=== PATIENT | female | born 1995 | race Caucasian/White ===

== ENCOUNTER 2017-06-11 15:43 | Emergency (ER) | payer MEDICAID ==
[~2017-06-11] VITALS: Ht 5451.6 cm; Wt 64.0 kg
[~2017-06-11 15:43] MED LIST: AMOX875T2 PO
[2017-06-11 15:46] VITALS: BP 133/77
[2017-06-11] MEDS ORDERED: CLIN300C53 PO (15:59)
[2017-06-11] MEDS ORDERED: HYDR-565 PO (15:59)
[2017-06-11] MEDS ORDERED: HYDROcodone/acetaminophen 10/325mg tab PO ONE (16:10)
[2017-06-12] MEDS ORDERED: PENI500T2 PO (16:09)
[2017-06-12] MEDS ORDERED: HYDR-565 PO (16:09)
== END 2017-06-11 16:35 | disposition home or self-care (01) ==
LOC: ER 15:44
DX: J03.90 Acute tonsillitis, unspecified (principal); K08.89 Other specified disorders of teeth and supporting structures; F17.200 Nicotine dependence, unspecified, uncomplicated; F12.10 Cannabis abuse, uncomplicated; F15.10 Other stimulant abuse, uncomplicated; Z79.899 Other long term (current) drug therapy
CPT/HCPCS: 99283

== ENCOUNTER 2017-06-12 15:44 | Emergency (ER) | payer MEDICAID ==
[~2017-06-12] VITALS: Ht 165.1 cm; Wt 63.6 kg
[~2017-06-12 15:44] MED LIST changes: +CLIN300C53 PO; +HYDR-565 PO
[2017-06-12 15:57] VITALS: BP 116/71
[2017-06-12] MEDS ORDERED: PENI500T2 PO (16:09)
[2017-06-12] MEDS ORDERED: HYDR-565 PO (16:09)
== END 2017-06-12 16:18 | disposition home or self-care (01) ==
LOC: ER 15:44
DX: A49.1 Streptococcal infection, unspecified site (principal); F12.10 Cannabis abuse, uncomplicated; F15.10 Other stimulant abuse, uncomplicated; Z79.899 Other long term (current) drug therapy
CPT/HCPCS: 99283

== ENCOUNTER 2018-05-23 22:26 | Emergency (ER) | payer MEDICAID ==
[~2018-05-23] VITALS: Ht 157.5 cm; Wt 56.6 kg
[~2018-05-23 22:26] MED LIST changes: +CEPH500C5 PO; -CLIN300C53 PO; -HYDR-565 PO
[2018-05-23 22:33] VITALS: BP 116/80
[2018-05-23 23:11] LABS: URINE HCG NEGATIVE (NEG)
[2018-05-23 23:12] LABS: CLARITY,URINE CLOUDY (Clear); COLOR,URINE YELLOW (Yellow); GLUCOSE, URINE NEGATIVE (Neg); KETONES,URINE NEGATIVE (Neg); LEUKOCYTE ESTERASE ,URINE SMALL (Neg); NITRITES, URINE POSITIVE (Neg); OCCULT BLOOD,URINE SMALL (Neg); PROTEIN,URINE TRACE mg/dl (Neg)
[2018-05-23 23:14] LABS: UA COLLECTION TYPE CLN CATCH MIDSTREAM
[2018-05-23 23:20] LABS: BACTERIA,URINE 4+ /HPF (Neg); RBC,URINE NONE SEEN /HPF (0-2)
[2018-05-23 23:21] LABS: SQUAMOUS EPITHELIAL CELL,UR MANY /LPF (FEW)
[2018-05-23] MEDS ORDERED: azithromycin 250mg tablet PO ONE (23:35)
[2018-05-23] MEDS ORDERED: CefTRIAXone 1000mg IM Kit (w/lidocaine diluent) IM ONE (23:35)
[2018-05-23] MEDS ORDERED: penicillin G benzathine 1.2 million unit/2ml syringe IM ONE (23:35)
[2018-05-25 11:14] LABS: RPR Reactive (Non Reactive)
== END 2018-05-24 00:26 | disposition home or self-care (01) ==
LOC: ER 22:26
DX: Z11.3 Encounter for screening for infections with a predominantly sexual mode of transmission (principal); N93.8 Other specified abnormal uterine and vaginal bleeding; F12.90 Cannabis use, unspecified, uncomplicated; F15.90 Other stimulant use, unspecified, uncomplicated
CPT/HCPCS: 36415; 81001; 81025; 86592; 96372; 99283; J0561; J0696

== ENCOUNTER 2018-06-22 06:44 | Emergency (ER) | payer MEDICAID ==
[~2018-06-22] VITALS: Ht 160 cm; Wt 65.9 kg
[2018-06-22 06:52] VITALS: BP 144/88
[2018-06-22] MEDS ORDERED: HYDROcodone/acetaminophen 5mg/325mg tablet PO ONE (07:15)
[2018-06-22] MEDS ORDERED: naproxen 500mg tablet PO ONE (07:20)
[2018-06-22] MEDS ORDERED: HYDR-3965 PO (07:23)
[2018-06-22] MEDS ORDERED: NAPR-56 PO (07:23)
== END 2018-06-22 07:52 | disposition home or self-care (01) ==
LOC: ER 06:45
DX: S12.490A Other displaced fracture of fifth cervical vertebra, initial encounter for closed fracture (principal); F12.90 Cannabis use, unspecified, uncomplicated; F15.90 Other stimulant use, unspecified, uncomplicated; Z79.2 Long term (current) use of antibiotics; Z79.899 Other long term (current) drug therapy; V89.2XXA Person injured in unspecified motor-vehicle accident, traffic, initial encounter; Y93.89 Activity, other specified; Y92.89 Other specified places as the place of occurrence of the external cause; Y99.8 Other external cause status
CPT/HCPCS: 99284

== ENCOUNTER 2019-01-10 10:16 | Emergency (ER) | payer MEDICAID ==
[~2019-01-10] VITALS: Ht 160 cm; Wt 63.8 kg
[~2019-01-10 10:16] MED LIST changes: -CEPH500C5 PO
[2019-01-10] MEDS ORDERED: AMOX-580 PO (11:52)
[2019-01-10] MEDS ORDERED: acetaminophen 325mg tablet PO ONE (11:55)
[2019-01-10 12:08] VITALS: BP 118/78
== END 2019-01-10 12:14 | disposition home or self-care (01) ==
LOC: ER 10:17
DX: J02.0 Streptococcal pharyngitis (principal); F12.90 Cannabis use, unspecified, uncomplicated; F15.90 Other stimulant use, unspecified, uncomplicated
CPT/HCPCS: 99283

== ENCOUNTER 2019-09-05 17:14 | Emergency (ER) | payer MEDICAID ==
[~2019-09-05] VITALS: Ht 157.5 cm; Wt 90.0 kg
[2019-09-05 17:17] VITALS: BP 136/72
--- NOTE | 2019-09-05 17:53 | NUR ---
pt is 24 yo female would like to know how her is going, LMP approx 3 months ago "but I am not sure", had test at [facility] 08/07, missed ultrasound appt 08/31, started [facility] for meth use but quit, last meth use was a couple days ago, pt is aware she needs to stop using drugs, waiting to be evaluated by provider, no vaginal discharge, no bleeding
[2019-09-05 18:21] LABS: CLARITY,URINE CLOUDY (Clear); COLOR,URINE YELLOW (Yellow); GLUCOSE, URINE NEGATIVE (Neg); KETONES,URINE NEGATIVE (Neg); LEUKOCYTE ESTERASE ,URINE SMALL (Neg); NITRITES, URINE POSITIVE (Neg); OCCULT BLOOD,URINE NEGATIVE (Neg); PROTEIN,URINE NEGATIVE (Neg); UROBILINOGEN,URINE 0.2 E.U/dL (0.2-1.0)
[2019-09-05 18:27] LABS: UA COLLECTION TYPE CLN CATCH MIDSTREAM
[2019-09-05 18:29] LABS: RBC,URINE 0-2 /HPF (0-2); SQUAMOUS EPITHELIAL CELL,UR MANY /LPF (FEW)
[2019-09-05 18:31] LABS: MUCUS STRANDS FEW /LPF (Neg)
[2019-09-05 18:37] LABS: BACTERIA,URINE 4+ /HPF (Neg)
--- NOTE | 2019-09-05 18:39 | NUR ---
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
--- NOTE | 2019-09-05 18:40 | NUR ---
Ivory RN made aware per lab, pts ua rejected d/t too much epithialial cells. Urine positive for nitrates and WBCs. Pt will need to provide a new urine sample.
[2019-09-05 18:58] LABS: URINE HCG POSITIVE (NEG)
== END 2019-09-05 21:05 | disposition home or self-care (01) ==
LOC: ER 17:14
DX: O03.9 Complete or unspecified spontaneous abortion without complication (principal); Z3A.08 8 weeks gestation of pregnancy
CPT/HCPCS: 76801; 76817; 81001; 81025; 99284

== ENCOUNTER 2020-02-05 10:25 | Emergency (ER) | payer MEDICAID ==
[~2020-02-05] VITALS: Ht 157.5 cm; Wt 72.0 kg
[2020-02-05 10:31] VITALS: BP 113/70
[2020-02-05 11:48] LABS: URINE HCG POSITIVE (NEG)
[2020-02-05 11:49] LABS: CLARITY,URINE SLIGHTLY CLOUDY (Clear); COLOR,URINE YELLOW (Yellow); GLUCOSE, URINE NEGATIVE (Neg); KETONES,URINE NEGATIVE (Neg); LEUKOCYTE ESTERASE ,URINE NEGATIVE (Neg); NITRITES, URINE NEGATIVE (Neg); OCCULT BLOOD,URINE NEGATIVE (Neg); PROTEIN,URINE NEGATIVE (Neg); UROBILINOGEN,URINE 0.2 E.U/dL (0.2-1.0)
[2020-02-05 11:55] LABS: UA COLLECTION TYPE CLN CATCH MIDSTREAM
[2020-02-05 11:58] LABS: BACTERIA,URINE 4+ /HPF (Neg); SQUAMOUS EPITHELIAL CELL,UR MODERATE /LPF (FEW)
[2020-02-05 11:59] LABS: BASOPHILS # (AUTO) 0.1 X10'3 (0-0.2); BASOPHILS % (AUTO) 0.7 % (0-1); EOSINOPHILS % (AUTO) 0.6 % (0-6); HEMATOCRIT 36.9 % (35.0-45.0); HEMOGLOBIN 12.6 g/dl (12.0-16.0); LYMPHOCYTES # (AUTO) 3.3 X10'3 (1.1-4.8); MEAN CORPUSCULAR HEMOGLOBIN 29.5 PG (27.0-31.0); MEAN CORPUSCULAR HGB CONC 34.2 g/dL (33.0-36.5); MEAN CORPUSCULAR VOLUME 86.4 FL (78-98); MEAN PLATELET VOLUME 8.7 FL (7.4-10.4); MONOCYTES # (AUTO) 0.6 X10'3 (0-0.9); MONOCYTES % (AUTO) 6.4 % (2-12); NEUTROPHILS # (AUTO) 4.7 X10'3 (1.8-7.7); NEUTROPHILS % (AUTO) 54.3 % (42-75); PLATELET COUNT 214 X10'3 (140-440); RED BLOOD COUNT 4.26 X10'6 (4.20-5.60); RED CELL DISTRIBUTION WIDTH 12.9 % (11.5-14.5); WHITE BLOOD COUNT 8.6 X10'3 (4.5-11.0)
[2020-02-05 12:00] LABS: MUCUS STRANDS FEW /LPF (Neg); RBC,URINE 0-2 /HPF (0-2); WBC,URINE 0-4 /HPF (0-4)
[2020-02-05 12:20] LABS: ALANINE AMINOTRANSFERASE 17 U/L (12-78); ALBUMIN 3.2 G/DL (3.4-5.0); ALBUMIN/GLOBULIN RATIO 0.8 (1.1-1.5); ALKALINE PHOSPHATASE 63 IU/L (46-116); ANION GAP 8 (8-16); ASPARTATE AMINO TRANSFERASE 17 U/L (10-37); BILIRUBIN,TOTAL 0.3 MG/DL (0.1-1.0); BLOOD UREA NITROGEN 19 MG/DL (7-18); BUN/CREATININE RATIO 41.3 (6.6-38.0); CALCIUM 8.3 MG/DL (8.5-10.1); CHLORIDE 104 MMOL/L (99-107); CREATININE 0.46 MG/DL (0.40-0.90); GLUCOSE 88 MG/DL (70-104); LIPASE 75 U/L (73-393); POTASSIUM 3.9 MMOL/L (3.5-5.1); SODIUM 137 MMOL/L (135-145); TOTAL CARBON DIOXIDE 24.6 MMOL/L (24-32); TOTAL PROTEIN 7.2 G/DL (6.4-8.2); eGFR > 90 ML/MIN
[2020-02-05] MEDS ORDERED: ONDA4TAB6 PO (12:25)
== END 2020-02-05 12:41 | disposition home or self-care (01) ==
LOC: ER 10:25
DX: O26.899 Other specified pregnancy related conditions, unspecified trimester (principal); R11.0 Nausea; R10.11 Right upper quadrant pain; F12.90 Cannabis use, unspecified, uncomplicated; F15.90 Other stimulant use, unspecified, uncomplicated; Z3A.00 Weeks of gestation of pregnancy not specified; Z72.89 Other problems related to lifestyle; Z79.2 Long term (current) use of antibiotics; Z79.899 Other long term (current) drug therapy
CPT/HCPCS: 36415; 80053; 81001; 81025; 83690; 85025; 87077; 87088; 87186; 99283

== ENCOUNTER 2020-08-06 20:57 | Emergency (ER) | payer MEDICAID ==
[~2020-08-06] VITALS: Ht 162.6 cm; Wt 94.0 kg
[~2020-08-06 20:57] MED LIST changes: +ONDA4TAB6 PO
[2020-08-06 23:47] VITALS: BP 129/85
== END 2020-08-06 23:49 | disposition home or self-care (01) ==
LOC: ER 20:58
DX: Z02.89 Encounter for other administrative examinations (principal); F12.90 Cannabis use, unspecified, uncomplicated; F15.90 Other stimulant use, unspecified, uncomplicated; Z72.89 Other problems related to lifestyle; Z79.2 Long term (current) use of antibiotics; Z79.899 Other long term (current) drug therapy
CPT/HCPCS: 99281

== ENCOUNTER 2022-06-13 03:54 | Inpatient (IN) | payer MEDICAID ==
[~2022-06-13] VITALS: Ht 160 cm; Wt 111.4 kg
[2022-06-13] MEDS ORDERED: morphine 2 MG/ML inj. syringe IV PRN (05:05)
[2022-06-13] MEDS ORDERED: normal saline 1000ML IV soln IVB ONE (05:05)
[2022-06-13 06:34] LABS: BASOPHILS # (AUTO) 0.1 X10'3 (0-0.2); BASOPHILS % (AUTO) 0.3 % (0-1); EOSINOPHILS % (AUTO) 0 % (0-6); HEMATOCRIT 33.5 % (35.0-45.0); HEMOGLOBIN 11.2 g/dl (12.0-16.0); LYMPHOCYTES # (AUTO) 2.4 X10'3 (1.1-4.8); LYMPHOCYTES % (AUTO) 15.5 % (21-51); MEAN CORPUSCULAR HEMOGLOBIN 28.5 PG (27.0-31.0); MEAN CORPUSCULAR HGB CONC 33.3 g/dL (33.0-36.5); MEAN CORPUSCULAR VOLUME 85.7 FL (78-98); MEAN PLATELET VOLUME 10.4 FL (7.4-10.4); MONOCYTES # (AUTO) 0.8 X10'3 (0-0.9); MONOCYTES % (AUTO) 4.9 % (2-12); NEUTROPHILS # (AUTO) 12.5 X10'3 (1.8-7.7); NEUTROPHILS % (AUTO) 79.3 % (42-75); PLATELET COUNT 251 X10'3 (140-440); RED BLOOD COUNT 3.91 X10'6 (4.20-5.60); RED CELL DISTRIBUTION WIDTH 13.8 % (11.5-14.5); WHITE BLOOD COUNT 15.7 X10'3 (4.5-11.0)
[2022-06-13 06:45] LABS: ALANINE AMINOTRANSFERASE 40 U/L (12-78); ALBUMIN 3.4 G/DL (3.4-5.0); ALBUMIN/GLOBULIN RATIO 0.9 (1.1-1.5); ALKALINE PHOSPHATASE 93 IU/L (46-116); ANION GAP 9 (8-16); ASPARTATE AMINO TRANSFERASE 42 U/L (10-37); BILIRUBIN,TOTAL 0.7 MG/DL (0.1-1.0); BLOOD UREA NITROGEN 17 MG/DL (7-18); BUN/CREATININE RATIO 16.2 (10.0-20.0); CALCIUM 8.7 MG/DL (8.5-10.1); CHLORIDE 104 MMOL/L (99-107); CREATININE 1.05 MG/DL (0.40-0.90); GLUCOSE 115 MG/DL (70-104); LIPASE 59 U/L (73-393); MAGNESIUM 1.8 MG/DL (1.5-2.4); POTASSIUM 4.3 MMOL/L (3.5-5.1); SODIUM 136 MMOL/L (135-145); TOTAL CARBON DIOXIDE 23.2 MMOL/L (24-32); TOTAL PROTEIN 7.1 G/DL (6.4-8.2); eGFR 63 ML/MIN
[2022-06-13 06:52] LABS: ETHANOL < 0.010 GM/DL (0.0-0.010)
[2022-06-13] MEDS ORDERED: normal saline 1000ml 1,000 ML IV ONE (08:15)
[2022-06-13 09:26] LABS: APTT 24 SECONDS (22-32)
[2022-06-13 09:36] LABS: HCG SERUM QL NEGATIVE
[2022-06-13 09:56] LABS: CLARITY,URINE CLOUDY (Clear); COLOR,URINE YELLOW (Yellow); GLUCOSE, URINE NEGATIVE (Neg); KETONES,URINE >=80 mg/dl (Neg); LEUKOCYTE ESTERASE ,URINE TRACE (Neg); NITRITES, URINE POSITIVE (Neg); OCCULT BLOOD,URINE NEGATIVE (Neg); PROTEIN,URINE 30 mg/dl (Neg); UROBILINOGEN,URINE 0.2 E.U/dL (0.2-1.0)
[2022-06-13 10:02] LABS: URINE AMPHETAMINE SCREEN POSITIVE (Neg); URINE BARBITUATE SCREEN NEGATIVE (Neg); URINE BENZODIAZEPINES SCREEN NEGATIVE (Neg); URINE CANNABINOID SCREEN POSITIVE (Neg); URINE COCAINE SCREEN NEGATIVE (Neg); URINE METHADONE SCREEN NEGATIVE (Neg); URINE OPIATE SCREEN NEGATIVE (Neg); URINE PHENCYCLIDINE SCREEN NEGATIVE (Neg)
[2022-06-13 10:07] LABS: UA COLLECTION TYPE CLN CATCH MIDSTREAM
[2022-06-13 10:16] LABS: WBC,URINE 20-30 /HPF (0-4)
[2022-06-13 10:17] LABS: BACTERIA,URINE 4+ /HPF (Neg); MUCUS STRANDS FEW /LPF (Neg); RBC,URINE 0-2 /HPF (0-2); SQUAMOUS EPITHELIAL CELL,UR MANY /LPF (FEW)
[2022-06-13] MEDS ORDERED: iohexol 300mg/ml 100ml inj. ONE (10:41)
--- NOTE | 2022-06-13 10:51 | NUR ---
patient to ct.
[2022-06-13 11:05] LABS: OCCULT BLOOD STOOL POSITIVE (Neg)
[2022-06-13] MEDS ORDERED: acetaminophen 325mg tablet PO PRN ×2 (12:10)
[2022-06-13] MEDS ORDERED: metoclopramide 5 mg/ml inj IV PRN (12:10)
[2022-06-13] MEDS ORDERED: acetaminophen 650mg rectal suppository RC PRN (12:10)
[2022-06-13] MEDS ORDERED: ondansetron/PF 4mg/2ml inj IV PRN (12:10)
[2022-06-13] MEDS ORDERED: ondansetron 4mg rapidly disintigrating tab PO PRN (12:10)
[2022-06-13] MEDS ORDERED: bisacodyl 10mg suppository rectal RC PRN (12:10)
[2022-06-13] MEDS ORDERED: magnesium Cl slow-release 64mg tablet PO PRN (12:10)
[2022-06-13] MEDS ORDERED: magnesium hydroxide 30ml (MOM) UD suspension PO PRN (12:10)
[2022-06-13] MEDS ORDERED: magnesium 2GM in 50ml NS 50 ML IV PRN (12:10)
[2022-06-13] MEDS ORDERED: potassium Cl 40MEQ/1/2NS 520ml 520 ML IV PRN (12:10)
[2022-06-13] MEDS ORDERED: PEG 3350/Na sulf,bicarb,Cl/KCl oral sol 4 liter bottle PO ONE (12:10)
[2022-06-13] MEDS ORDERED: potassium Cl 20 mEq SR tablet PO PRN ×2 (12:10)
[2022-06-13] MEDS ORDERED: LORazepam 0.5 MG tablet PO PRN (12:10)
[2022-06-13] MEDS ORDERED: mag hydrox/Alum hydrox/simeth 30ml oral suspension PO PRN (12:10)
[2022-06-13] MEDS ORDERED: magnesium 4gm in 100ml NS 100 ML IV PRN (12:10)
--- NOTE | 2022-06-13 12:46 | NUR ---
Attempted to call Gi lab to coordinate scope time tomorrow and inquire when to start oral prep/golytely but no answer.paged GI instead. We will wait for a call.
[2022-06-13] MEDS ORDERED: NO HOME MEDS (13:05)
--- NOTE | 2022-06-13 14:14 | NUR ---
ALEXEI GUSTAFSON ON BREAK BUT WILL BE BACK SOON.
[2022-06-13] MEDS: normal saline 1000ml 1,000 ML IV SCH ×2 (17:38→22:10)
[2022-06-13 18:00] VITALS: BP 110/68
--- NOTE | 2022-06-13 18:52 | NUR ---
Gave report to aMrcy vera RN.
--- NOTE | 2022-06-13 18:55 | NUR ---
Patient in room [facility]. I have received report from ALEXEI GUSTAFSON and had the opportunity to ask questions and assume patient care.
[2022-06-13] MEDS: K and/or MAG REPLACEMENT MC SCH (20:00)
[2022-06-13] MEDS: docusate sod 100mg capsule PO SCH (20:30)
[2022-06-13] MEDS ORDERED: temazepam 15mg capsule PO PRN (21:00)
[2022-06-13 22:00] VITALS: BP 114/55
[2022-06-14] VITALS (8 sets, daily range): BP systolic 91–131; BP diastolic 43–89
[2022-06-14] MEDS: normal saline 1000ml 1,000 ML IV SCH ×2 (02:41→18:10)
[2022-06-14 06:09] LABS: BASOPHILS % (AUTO) 0.4 % (0-1); EOSINOPHILS # (AUTO) 0.1 X10'3 (0-0.9); EOSINOPHILS % (AUTO) 0.8 % (0-6); HEMATOCRIT 23.2 % (35.0-45.0); HEMOGLOBIN 7.8 g/dl (12.0-16.0); LYMPHOCYTES # (AUTO) 3.7 X10'3 (1.1-4.8); MEAN CORPUSCULAR HEMOGLOBIN 29.2 PG (27.0-31.0); MEAN CORPUSCULAR HGB CONC 33.8 g/dL (33.0-36.5); MEAN CORPUSCULAR VOLUME 86.6 FL (78-98); MEAN PLATELET VOLUME 9.9 FL (7.4-10.4); MONOCYTES # (AUTO) 0.6 X10'3 (0-0.9); MONOCYTES % (AUTO) 7.3 % (2-12); NEUTROPHILS # (AUTO) 3.9 X10'3 (1.8-7.7); NEUTROPHILS % (AUTO) 46.5 % (42-75); PLATELET COUNT 159 X10'3 (140-440); RED BLOOD COUNT 2.68 X10'6 (4.20-5.60); RED CELL DISTRIBUTION WIDTH 14.1 % (11.5-14.5); WHITE BLOOD COUNT 8.3 X10'3 (4.5-11.0)
--- NOTE | 2022-06-14 06:30 | NUR ---
Problems reprioritized. Patient report given, questions answered & plan of care reviewed with ALEXEI GUSTAFSON.
[2022-06-14 06:35] LABS: ALANINE AMINOTRANSFERASE 25 U/L (12-78); ALBUMIN 2.6 G/DL (3.4-5.0); ALKALINE PHOSPHATASE 69 IU/L (46-116); ANION GAP 8 (8-16); ASPARTATE AMINO TRANSFERASE 24 U/L (10-37); BILIRUBIN,TOTAL 0.3 MG/DL (0.1-1.0); BLOOD UREA NITROGEN 13 MG/DL (7-18); CALCIUM 7.8 MG/DL (8.5-10.1); CHLORIDE 109 MMOL/L (99-107); CREATININE 0.65 MG/DL (0.40-0.90); GLUCOSE 91 MG/DL (70-104); POTASSIUM 3.3 MMOL/L (3.5-5.1); SODIUM 143 MMOL/L (135-145); TOTAL CARBON DIOXIDE 26.4 MMOL/L (24-32); TOTAL PROTEIN 5.3 G/DL (6.4-8.2); eGFR > 90 ML/MIN
[2022-06-14] MEDS: docusate sod 100mg capsule PO SCH ×2 (07:00→20:00)
[2022-06-14] MEDS: K and/or MAG REPLACEMENT MC SCH ×2 (08:41→20:00)
--- NOTE | 2022-06-14 08:41 | NUR ---
cALLED PHARMACY TO PREPARE iv POTASSIUM
[2022-06-14] MEDS ORDERED: potassium Cl 40MEQ/1/2NS 520ml 520 ML IV ONE (08:45)
[2022-06-14] MEDS ORDERED: fentaNYL/PF 50MCG/1 ML 2ML syringe ONE (15:16)
[2022-06-14] MEDS ORDERED: MIDAZolam 1 MG/ML 5ML VIAL ONE (15:16)
--- NOTE | 2022-06-14 16:45 | NUR ---
PAGER ID: [phone] MESSAGE: Ashley Vitale 345a [facility] No active bleed. Some purple "bruised spots". Pt. asking to stay until AM and eat. Can she have a diet? Heike [id number]
--- NOTE | 2022-06-14 18:32 | NUR ---
Gave report to Marta GUSTAFSON.
[2022-06-15 06:00] VITALS: BP 97/56
--- NOTE | 2022-06-15 06:47 | NUR ---
Patient in room [facility]. I have received report from JANAY Lozano and had the opportunity to ask questions and assume patient care.
[2022-06-15] MEDS: normal saline 1000ml 1,000 ML IV SCH (06:56)
[2022-06-15 07:31] LABS: BASOPHILS % (AUTO) 0.4 % (0-1); EOSINOPHILS # (AUTO) 0.1 X10'3 (0-0.9); EOSINOPHILS % (AUTO) 0.8 % (0-6); HEMATOCRIT 23.1 % (35.0-45.0); HEMOGLOBIN 7.7 g/dl (12.0-16.0); LYMPHOCYTES # (AUTO) 3.3 X10'3 (1.1-4.8); LYMPHOCYTES % (AUTO) 39.4 % (21-51); MEAN CORPUSCULAR HEMOGLOBIN 28.9 PG (27.0-31.0); MEAN CORPUSCULAR HGB CONC 33.2 g/dL (33.0-36.5); MEAN CORPUSCULAR VOLUME 87.1 FL (78-98); MEAN PLATELET VOLUME 9.9 FL (7.4-10.4); MONOCYTES # (AUTO) 0.5 X10'3 (0-0.9); MONOCYTES % (AUTO) 6.3 % (2-12); NEUTROPHILS # (AUTO) 4.4 X10'3 (1.8-7.7); NEUTROPHILS % (AUTO) 53.1 % (42-75); PLATELET COUNT 161 X10'3 (140-440); RED BLOOD COUNT 2.65 X10'6 (4.20-5.60); RED CELL DISTRIBUTION WIDTH 14.6 % (11.5-14.5); WHITE BLOOD COUNT 8.3 X10'3 (4.5-11.0)
[2022-06-15 07:57] LABS: ALANINE AMINOTRANSFERASE 23 U/L (12-78); ALBUMIN 2.5 G/DL (3.4-5.0); ALBUMIN/GLOBULIN RATIO 0.9 (1.1-1.5); ALKALINE PHOSPHATASE 78 IU/L (46-116); ANION GAP 8 (8-16); ASPARTATE AMINO TRANSFERASE 23 U/L (10-37); BILIRUBIN,TOTAL 0.2 MG/DL (0.1-1.0); BLOOD UREA NITROGEN 9 MG/DL (7-18); BUN/CREATININE RATIO 13.4 (10.0-20.0); CALCIUM 7.8 MG/DL (8.5-10.1); CHLORIDE 106 MMOL/L (99-107); CREATININE 0.67 MG/DL (0.40-0.90); GLUCOSE 100 MG/DL (70-104); POTASSIUM 3.4 MMOL/L (3.5-5.1); SODIUM 140 MMOL/L (135-145); TOTAL CARBON DIOXIDE 26.3 MMOL/L (24-32); TOTAL PROTEIN 5.3 G/DL (6.4-8.2); eGFR > 90 ML/MIN
[2022-06-15] MEDS: docusate sod 100mg capsule PO SCH (08:00)
[2022-06-15] MEDS: K and/or MAG REPLACEMENT MC SCH (08:09)
[2022-06-15 11:00] VITALS: BP 117/53
--- NOTE | 2022-06-15 13:03 | NUR ---
Patient stable and appropriate for discharge. All instructions given to patient. IV removed, canula intact. All belongings sent with patient. Patient walked to lobby and taken home in private vehicle.
== END 2022-06-15 13:00 | disposition home or self-care (01) | DRG 254 ==
LOC: ER 03:55 → ED HOLD 12:21 → SUR 3N 16:40
PROVIDERS: ADMIT Family Medicine; ATTEND Family Medicine
PROC: BW211ZZ Computerized Tomography (CT Scan) of Abdomen and Pelvis using Low Osmolar Contrast (ICD-10-PCS; principal; 2022-06-13)
PROC: 0DJD8ZZ Inspection of Lower Intestinal Tract, Via Natural or Artificial Opening Endoscopic (ICD-10-PCS; 2022-06-14)
DX: T18.5XXA Foreign body in anus and rectum, initial encounter (principal); N17.0 Acute kidney failure with tubular necrosis; D64.9 Anemia, unspecified; K62.5 Hemorrhage of anus and rectum; E78.5 Hyperlipidemia, unspecified; I10 Essential (primary) hypertension; D72.829 Elevated white blood cell count, unspecified; E87.6 Hypokalemia; K62.6 Ulcer of anus and rectum; J44.9 Chronic obstructive pulmonary disease, unspecified; F15.90 Other stimulant use, unspecified, uncomplicated; X58.XXXA Exposure to other specified factors, initial encounter; Y93.89 Activity, other specified; Y92.89 Other specified places as the place of occurrence of the external cause; Y99.8 Other external cause status
CPT/HCPCS: 36415; 45378; 74177; 80053; 80305; 80320; 81001; 82272; 83690; 83735; 84703; 85025; 85610; 85730; 86885; 86900; 86901; 87081; 93005; 99152; 99285; G0378; J2250; J3010; J3480; J3490; J7030; Q9967

== ENCOUNTER 2022-09-27 11:29 | Emergency (ER) | payer MEDICAID, SELFPAY ==
[~2022-09-27 11:29] MED LIST changes: -AMOX875T2 PO; +NO HOME MEDS; -ONDA4TAB6 PO
== END 2022-09-27 13:25 | disposition left against medical advice (07) ==
LOC: ER 11:29
DX: L08.89 Other specified local infections of the skin and subcutaneous tissue (principal); Z53.21 Procedure and treatment not carried out due to patient leaving prior to being seen by health care provider

== ENCOUNTER 2023-04-05 15:15 | Emergency (ER) | payer MEDICAID ==
[~2023-04-05] VITALS: Ht 157.5 cm; Wt 75.0 kg
[2023-04-05 15:27] VITALS: BP 131/78; PULSE 111; RESP 18; TEMP 97.8; O2SAT 98
[2023-04-05] MEDS: azithromycin 250mg tablet PO ONE (15:48)
[2023-04-05] MEDS: CefTRIAXone 1000mg IM Kit (w/lidocaine diluent) IM STA (15:49)
[2023-04-05 17:12] LABS: SYPHILIS SCREENING TEST POC POSITIVE (Negative)
== END 2023-04-05 16:45 | disposition home or self-care (01) ==
LOC: ER 15:16
DX: O26.891 Other specified pregnancy related conditions, first trimester (principal); A64 Unspecified sexually transmitted disease; F12.90 Cannabis use, unspecified, uncomplicated; F15.90 Other stimulant use, unspecified, uncomplicated; Z20.822 Contact with and (suspected) exposure to COVID-19; Z72.89 Other problems related to lifestyle; Z3A.08 8 weeks gestation of pregnancy
CPT/HCPCS: 36415; 86592; 87491; 87591; 96372; 99283; J0696

== ENCOUNTER → 2023-07-31 | Outpatient (CLI) | payer MEDICAID | END | disposition home or self-care (01) | LOC: RAD 15:56 | PROVIDERS: ATTEND Obstetrics & Gynecology | DX: O32.1XX0 Maternal care for breech presentation, not applicable or unspecified (principal); O09.92 Supervision of high risk pregnancy, unspecified, second trimester; Z3A.25 25 weeks gestation of pregnancy | CPT/HCPCS: 76811 ==

== ENCOUNTER 2023-11-02 11:55 | Emergency (ER) | payer MEDICAID ==
[~2023-11-02] VITALS: Ht 160 cm; Wt 100.0 kg
[2023-11-02 11:58] VITALS: BP 148/84; PULSE 98; RESP 16; TEMP 98.5; O2SAT 99
== END 2023-11-02 14:09 | disposition home or self-care (01) ==
LOC: ER 11:55
DX: Z02.89 Encounter for other administrative examinations (principal); F12.90 Cannabis use, unspecified, uncomplicated; F15.90 Other stimulant use, unspecified, uncomplicated; Z72.89 Other problems related to lifestyle
CPT/HCPCS: 99281

== ENCOUNTER 2024-06-12 10:32 | Emergency (ER) | payer MEDICAID ==
[~2024-06-12] VITALS: Ht 162.6 cm; Wt 97.3 kg
[2024-06-12] MEDS ORDERED: HYDR-3686 PO (14:36)
[2024-06-12 14:41] VITALS: BP 132/95; PULSE 78; RESP 16; TEMP 97.9; O2SAT 98
== END 2024-06-12 14:48 | disposition home or self-care (01) ==
LOC: ER 10:33
DX: G47.00 Insomnia, unspecified (principal); Z00.8 Encounter for other general examination; F12.90 Cannabis use, unspecified, uncomplicated; F15.90 Other stimulant use, unspecified, uncomplicated
CPT/HCPCS: 99283

== ENCOUNTER 2024-07-24 20:17 | Emergency (ER) | payer MEDICAID ==
[~2024-07-24] VITALS: Ht 162.6 cm; Wt 88.5 kg
[~2024-07-24 20:17] MED LIST changes: +HYDR-3686 PO
[2024-07-24 20:34] VITALS: BP 115/72; PULSE 61; RESP 16; TEMP 98.6; O2SAT 99
== END 2024-07-24 23:46 | disposition left against medical advice (07) ==
LOC: ER 20:18
DX: N39.0 Urinary tract infection, site not specified (principal); Z53.21 Procedure and treatment not carried out due to patient leaving prior to being seen by health care provider